=== PATIENT | female | born 1990 | race Hispanic/Latino ===

== ENCOUNTER 2018-11-26 21:14 | Emergency (ER) | payer OTHER ==
[~2018-11-26] VITALS: Ht 167.6 cm; Wt 104.3 kg
[2018-11-26 21:14] VITALS: BP 149/65
--- NOTE | 2018-11-26 21:35 | ER.PDOC ---
General Chief Complaint: Vaginal Bleed Stated Complaint: SPOTTING, CRAMPING Time seen by MD: 21:15 Source: patient Exam Limitations: no limitations History of Present Illness Initial Comments Pt states that her LMP was 09/17 and that today going to [place] she started cramping and bleeding, clots and tissue Timing/Duration: this afternoon Severity/Quality: moderate, cramping LMP (females 10-50): 3 months : 5 Para: 4 Care: none Allergies: Coded Allergies: No Known Allergies (Unverified , 11/26/18) Home Meds No Active Prescriptions or Reported Meds Past Medical History Medical History: no pertinent history Surgical History: cholecystectomy LMP (females 10-50): 09/17/2018 Social History Smoking: non-smoker Alcohol Use: none Drug Use: none Review of Systems Constitutional: see HPI EENTM: no symptoms reported Respiratory: no symptoms reported Cardiovascular: no symptoms reported Gastrointestinal: no symptoms reported Genitourinary: see HPI Musculoskeletal: no symptoms reported Skin: no symptoms reported Psychiatric/Neurological: no symptoms reported Endocrine: no symptoms reported Hematologic/Lymphatic: no symptoms reported Physical Exam General Appearance: No Apparent Distress, WD/WN EENT: eyes nml inspection, nml ENT inspection, pharynx nml Neck: nml inspection, non-tender Cardiovascular/Respiratory: Regular Rate, Rhythm, No M/R/G, Normal Peripheral Pulses, No JVD, Normal Breath Sounds, No Respiratory Distress Abdomen: Normal Bowel Sounds, Non Tender, Soft, No Organomegaly, No Pulsatile Mass Back: nml inspection Extremities: Normal Range of Motion, Non-Tender, Normal Inspection, No Pedal Edema, No Calf Tenderness, Normal Capillary Refill Neurologic/Psychiatric: powder carrier II-XII NML as Tested, No Motor/Sensory Deficits, Alert, Normal Mood/Affect, Oriented x 3 Skin: Normal Color, Warm/Dry Lymphatic: No Adenopathy Results/Orders Results/Orders Laboratory Tests Test 11/26/18 21:24 11/26/18 21:39 Urine Collection Type CCMS Urine Color RED (YELLOW) Urine Appearance CLOUDY (CLEAR) Urine Bilirubin NEGATIVE MG/DL (NEGATIVE) Urine Ketones 5 mg/dL (NEGATIVE) Urine Specific [place] 1.020 (1.005-1.035) Urine pH 5 (5.0-6.0) Urine Protein 500 mg/dL (NEGATIVE) Urine Urobilinogen 1.0 (NEGATIVE) Urine Nitrate NEGATIVE (NEGATIVE) Urine Leukocyte Esterase 100/ul 1+ (NEGATIVE) Urine Blood 250 4+ (NEGATIVE) Urine RBC TNTC RBC/HPF (NONE SEEN) Urine WBC TNTC WBC/HPF (0-2) Urine Squamous Epithelial Cells FEW #/HPF (FEW) Urine Amorphous Sediment SMALL (NONE SEEN) Urine Bacteria RARE (NONE SEEN) Urine Glucose NORMAL (NEGATIVE) Urine HCG, Qualitative POSITIVE (NEGATIVE) White Blood Count 10.4 10^3/uL (4.5-11.0) Red Blood Count 4.31 10^6/uL (4.00-5.20) Hemoglobin 12.4 g/dL (12.0-15.0) Hematocrit 37.6 % (36.0-46.0) Mean Corpuscular Volume 87.2 fL (78-100) Mean Corpuscular Hemoglobin 28.8 pg (26-34) Mean Corpuscular Hemoglobin Concent 33.0 g/dL (33-37) Red Cell Distribution Width 13.7 % (11.5-14.5) Platelet Count 383 10^3/uL (150-400) Mean Platelet Volume 9.1 fL (7.8-11.0) Neutrophils (%) (Auto) 64.1 % (41.0-85.0) Lymphocytes (%) (Auto) 23.1 % (24.0-44.0) Monocytes (%) (Auto) 9.7 % (5.0-12.0) Neutrophils # (Auto) 6.7 10^3/uL (1.8-7.7) Lymphocytes # (Auto) 2.4 10^3/uL (1.0-4.8) Monocytes # (Auto) 1.0 10^3/uL (0.3-0.8) Absolute Immature Granulocyte (auto 0.02 10^3 u/L (0-2) Eosinophils % 2.4 % (0.0-5.0) Basophils % 0.5 % (0.0-0.2) Basophils # 0.1 10^3/uL (0.0-0.1) Eosinophil Count 0.3 10^3/uL (0.0-0.2) Sodium Level 140 mmol/L (132-145) Potassium Level 3.5 mmol/L (3.6-5.2) Chloride Level 106.0 mmol/L (96-109) Carbon Dioxide Level 27.0 mmol/L (20.0-32) Anion Gap 10.5 Blood Urea Nitrogen 11 mg/dL (7-18) Creatinine 0.74 mg/dL (0.59-1.40) Estimated GFR () 112.3 (>/=60) BUN/Creatinine Ratio 14.0 Glucose Level 86 mg/dL (70-110) Calcium Level 9.0 mg/dL (8.4-10.5) Total Bilirubin 0.2 mg/dL (0.2-1.0) Aspartate Amino Transf (AST/SGOT) 22 U/L (0-35) Alanine Aminotransferase (ALT/SGPT) 38 U/L (12-78) Alkaline Phosphatase 108 U/L (50-136) Total Protein 7.9 g/dL (6.4-8.2) Albumin 3.7 g/dL (3.4-5.0) Globulin 4.2 Human Chorionic Gonadotropin, Quant 79839 mIU/mL Percent Immature Gran (Cell Imm) 0.20 % (0.00-0.50) Departure Time of Disposition: 22:38 Disposition: 01 HOME, SELF-CARE Impression: Primary Impression: Spontaneous Condition: Stable Patient Instructions: Miscarriage, [id number] Scripts No Active Prescriptions or Reported Meds Duration or Time Spent with Pa: RED TREVIZO MD Nov 26, 2018 21:35
[2018-11-26 21:47] LABS: BASOPHIL # 0.1 10^3/uL (0.0-0.1); BASOPHIL % 0.5 % (0.0-0.2); EOSINOPHIL # 0.3 10^3/uL (0.0-0.2); EOSINOPHIL % 2.4 % (0.0-5.0); HEMOGLOBIN 12.4 g/dL (12.0-15.0); LYMPHOCYTES # 2.4 10^3/uL (1.0-4.8); LYMPHOCYTES % 23.1 % (24.0-44.0); MEAN CELL HGB 28.8 pg (26-34); MEAN CORP VOLUME 87.2 fL (78-100); MEAN PLATELET VOLUME 9.1 fL (7.8-11.0); MONOCYTES % 9.7 % (5.0-12.0); NEUTROPHIL # 6.7 10^3/uL (1.8-7.7); NEUTROPHILS % 64.1 % (41.0-85.0); RED CELL DISTRIBUTION WIDTH 13.7 % (11.5-14.5); WHITE BLOOD CELL 10.4 10^3/uL (4.5-11.0)
[2018-11-26 22:04] LABS: BILIRUBIN,URINE NEGATIVE (NEGATIVE)
[2018-11-26 22:17] LABS: APPEARANCE,URINE CLOUDY (CLEAR); UA COLOR RED (YELLOW)
--- NOTE | 2018-11-26 22:58 | DIREP ---
PROCEDURE:US OB 1ST TRI - TV COMPARISON:None. INDICATIONS:Bleeding TECHNIQUE:Transabdominal and endovaginal pelvic ultrasound images were obtained. Endovaginal images were obtained to optimally evaluate the and maternal adnexal structures. FINDINGS: GESTATIONAL SAC:No gestational sac visualized. Prominent decidual reaction suggested in the uterus.. YOLK SAC: No gestational sac visualized. POLE: No gestational sac visualized.. CARDIAC ACTIVITY:No gestational sac visualized.. UTERUS:Uterus measures 9.4 poor 4.9 x 6.8. OVARIES:Right ovary measures 3.7 x 2.6 x 2.4 cm. Left ovary measures 4.3 x 1.7 x 1.9 cm. CUL-DE-SAC:Unremarkable OTHER: Negative. CONCLUSION: Viable intrauterine not confirmed by ultrasound. Differential considerations are early viable IUP, failed or ectopic depending on quantitative betaHCG. No complex adnexal/pelvic mass or complex fluid to suggest ectopic . Recommend serial quantitative hCG follow-up and ultrasound evaluation. Dictated by: Sourav Wolf M.D. on 11/26/2018 at 10:53 PM
[2018-11-26 23:12] VITALS: BP 135/76
[2018-11-26 23:14] VITALS: BP 135/76
== END 2018-11-26 23:18 | disposition home or self-care (01) ==
LOC: ER 21:14
DX: O03.9 Complete or unspecified spontaneous abortion without complication (principal); Z90.49 Acquired absence of other specified parts of digestive tract
CPT/HCPCS: 36415; 76801; 76817; 80053; 81000; 81025; 84702; 85025; 85610; 85730; 86900; 87086; 99284